=== PATIENT | female | born 1980 | race Caucasian/White ===

== ENCOUNTER 2016-06-24 14:31 | Emergency (ER) | payer OTHER, MEDICAID | END 2016-06-24 18:11 | disposition home or self-care (01) | DX: S92.332A Displaced fracture of third metatarsal bone, left foot, initial encounter for closed fracture (principal); X50.0XXA Overexertion from strenuous movement or load, initial encounter; E11.9 Type 2 diabetes mellitus without complications; Z79.84 Long term (current) use of oral hypoglycemic drugs; M19.90 Unspecified osteoarthritis, unspecified site ==

== ENCOUNTER 2016-07-09 09:03 | Outpatient (CLI) | payer OTHER, MEDICAID | END 2016-07-09 09:04 | disposition home or self-care (01) | DX: M81.0 Age-related osteoporosis without current pathological fracture (principal); E11.9 Type 2 diabetes mellitus without complications ==

== ENCOUNTER 2017-08-16 10:19 | Emergency (ER) | payer OTHER, MEDICAID ==
[2017-08-16 10:44] VITALS: BP 109/84
--- NOTE | 2017-08-16 12:00 | ED Physician Documentation ---
PD HPI UPPER EXT INJURY - Stated complaint Stated Complaint: LEFT HAND INJ/GLF - Chief complaint Chief Complaint: Trauma Ext - History obtained from History obtained from: Patient - History of Present Illness Location: Left Type of injury: Fall Timing - details: Abrupt onset, Still present Worsened by: Moving, Palpating Associated symptoms: Swelling. No: Weakness, Numbness Contributing factors: No: Anticoagulated Similar symptoms before: Has not had sx before Recently seen: Not recently seen Review of Systems Skin: denies: Abrasion (s), Laceration (s) Neurologic: denies: Focal weakness, Numbness PD PAST MEDICAL HISTORY - Past Medical History Past Medical History: Yes Neuro: Seizure disorder Endocrine/Autoimmune: Type 2 diabetes HEENT: Chronic hearing loss Musculoskeletal: Osteopenia Other Past Medical History: Turners syndrome - Past Surgical History Past Surgical History: Yes HEENT: Myringotomy (tubes) - Present Medications Home Medications: Ambulatory Orders Medication Instructions Recorded Confirmed Sitagliptin Phos/Metformin HCl 1 each PO BID 08/14/14 08/16/17 [Janumet 50-1,000 mg Tablet] carBAMazepine ER [TEGretol XR] 200 mg PO DAILY 08/14/14 08/16/17 lamoTRIgine [LaMICtal] 100 mg PO BID 08/14/14 08/16/17 LORazepam [Ativan] 1 mg PO DAILY PRN 06/15/15 08/16/17 Estradiol [Estrace] 1 tab PO DAILY 08/16/17 08/16/17 Estrogen,Con/M-Progest Acet 1 tab PO DAILY 08/16/17 08/16/17 [Prempro 0.625-5 mg Tablet] Glimepiride [Amaryl] 1 tab PO DAILY 08/16/17 08/16/17 - Allergies Allergies/Adverse Reactions: Allergies Allergy/AdvReac Type Severity Reaction Status Date / Time levetiracetam [From Keppra] Allergy Unknown Verified 08/16/17 11:36 phenytoin sodium * AdvReac Nausea Verified 08/16/17 11:36 [From Dilantin] phenytoin sodium extended * AdvReac Nausea Verified 08/16/17 11:36 [From Dilantin] - Social History Does the pt smoke?: No Smoking Status: Never smoker Does the pt drink ETOH?: No Does the pt have substance abuse?: No - Immunizations Immunizations are current?: Yes PD ED PE NORMAL - Vitals Vital signs reviewed: Yes - General General: Alert and oriented X 3, No acute distress, Well developed/nourished - Derm Derm: Normal color, Warm and dry - Extremities Extremities: Normal ROM s pain, No edema, Other (rigt wrist with some tenderness dorsally. Not in snuffbox. Both wrists area placed anteriorly and offset a bit developmentally. Only tender on left. Comparison of wrists visually are symmetric. 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 No noted fractures. ) PD MEDICAL DECISION MAKING - ED course Complexity details: reviewed results, considered differential, d/w patient Departure - Departure Disposition: 01 Home, Self Care Clinical Impression: Fall from slip, trip, or stumble Qualifiers: Encounter type: initial encounter Qualified Code(s): W01.0XXA - Fall on same level from slipping, tripping and stumbling without subsequent striking against object, initial encounter Right wrist sprain Qualifiers: Encounter type: initial encounter Qualified Code(s): S63.501A - Unspecified sprain of right wrist, initial encounter Condition: Stable Record reviewed to determine appropriate education?: Yes Instructions: ED Sprain Wrist Follow-Up: MERON OLSEN MD [Primary Care Provider] - Comments: Tylenol or ibuprofen if needed for pains. Wrist splint as needed for comfort and you can reduce use of the splint as it feels more comfortable. This likely will be sore for several days to week or so. Recheck if not better in that time. Discharge Date/Time: 08/16/17 12:37
[2017-08-16] MEDS ORDERED: IBUPROFEN 400 MG TABLET PO STA (12:15)
--- NOTE | 2017-08-16 12:20 | XRAY Report ---
EXAM: RIGHT FOREARM RADIOGRAPHY EXAM DATE: 08/16/2017 11:03 AM. CLINICAL HISTORY: Pain. COMPARISON: None. TECHNIQUE: 2 views. FINDINGS: Bones/joints: No definite fractures or acute bone lesions. Mild apex-lateral bowing of the radial shalonda physis with some chronic appearing cortical thickening along the medial aspect of the radial diaphysi s, proximal to the midpoint. These changes could be due to old, healed fracture or could be developme ntal in nature. Chronic-type changes of the wrist demonstrated. Refer to the wrist report from same d claritza for further information. The elbow process normally aligned. No definite joint effusion. Joints: Normal. No effusions or subluxations in the visualized wrist or elbow joints. Soft Tissues: Normal. No soft tissue swelling. IMPRESSION: 1. No definite acute abnormality of the right forearm. 2. Radial bowing with area of focal radial diaphyseal cortical thickening may represent sequelae of a n old, healed fracture, versus a developmental finding. 3. Chronic-type changes of the wrist. Refer to the wrist report from today. MINDY Referring Provider Line: [phone] SITE ID: [id number]
--- NOTE | 2017-08-16 12:26 | XRAY Report ---
EXAM: RIGHT WRIST RADIOGRAPHY EXAM DATE: 08/16/2017 11:02 AM. CLINICAL HISTORY: Pain. COMPARISON: None. TECHNIQUE: 3 views. FINDINGS: Bones/joints: No definite acute fractures or acute bone lesions. There is focal deformity along the m edial aspect of the distal radius, with some mild marginal spurring. This could represent sequelae of remote injury/fracture or developmental in nature. There is radiocarpal joint space narrowing with t he lunate mildly interposed between the distal radius and ulna. Substantial joint space narrowing with associated marginal broadening/hypertrophy dorsally at the lev el of carpometacarpal joints, likely the third and/or the second. This also could be a developmental finding and possibly a degree of coalition, versus substantial degenerative disease. Soft Tissues: Possible dorsal soft tissue swelling. IMPRESSION: 1. No definite acute osseous abnormality. 2. Mild deformity of the distal radius with associated radiocarpal joint space narrowing which may be due to remote injury and superimposed degenerative change or may be developmental in nature. 3. Substantial narrowing and associated chronic hypertrophic changes at some carpometacarpal joints m ay also be developmental versus advanced degenerative disease. Correlation with clinical examination in history is recommended. If further evaluation were indicated , MR imaging could be performed. MINDY Referring Provider Line: [phone] SITE ID: [id number]
== END 2017-08-16 12:37 | disposition home or self-care (01) ==
LOC: ED 10:19
DX: S63.501A Unspecified sprain of right wrist, initial encounter (principal); W01.0XXA Fall on same level from slipping, tripping and stumbling without subsequent striking against object, initial encounter; E11.9 Type 2 diabetes mellitus without complications; G40.909 Epilepsy, unspecified, not intractable, without status epilepticus
CPT/HCPCS: 73090; 73110; 99283; A9270

== ENCOUNTER 2017-12-20 16:15 | Emergency (ER) | payer OTHER, MEDICAID ==
[2017-12-20] MEDS ORDERED: IBUPROFEN 400 MG TABLET PO STA (16:32)
[2017-12-20] MEDS ORDERED: ACETAMINOPHEN 325 MG TABLET PO STA (16:32)
[2017-12-20] MEDS ORDERED: BACITRACIN OINT TOP ONE (16:57)
--- NOTE | 2017-12-20 17:14 | ED Physician Documentation ---
History of Present Illness - Stated complaint Stated Complaint: R FOOT INJ - Chief complaint Chief Complaint: Heent - Additonal information Additional information: stumbled on step and twisted R ankle osteporosis 2/2 early menopause 2/2 underlying pmhx so fx occur easily no head neck or other injury otherwise well recently Review of Systems : denies: Now EGA Musculoskeletal: reports: Pain with weight bearing. denies: Neck pain Neurologic: denies: Headache, Head injury PD PAST MEDICAL HISTORY - Past Medical History Past Medical History: Yes Endocrine/Autoimmune: Type 2 diabetes HEENT: Chronic hearing loss Musculoskeletal: Osteopenia - Past Surgical History Past Surgical History: Yes HEENT: Myringotomy (tubes) - Present Medications Home Medications: Ambulatory Orders Medication Instructions Recorded Confirmed Sitagliptin Phos/Metformin HCl 1 each PO BID 08/14/14 08/16/17 [Janumet 50-1,000 mg Tablet] carBAMazepine ER [TEGretol XR] 200 mg PO DAILY 08/14/14 08/16/17 lamoTRIgine [LaMICtal] 100 mg PO BID 08/14/14 08/16/17 LORazepam [Ativan] 1 mg PO DAILY PRN 06/15/15 08/16/17 Estradiol [Estrace] 1 tab PO DAILY 08/16/17 08/16/17 Estrogen,Con/M-Progest Acet 1 tab PO DAILY 08/16/17 08/16/17 [Prempro 0.625-5 mg Tablet] Glimepiride [Amaryl] 1 tab PO DAILY 08/16/17 08/16/17 - Allergies Allergies/Adverse Reactions: Allergies Allergy/AdvReac Type Severity Reaction Status Date / Time levetiracetam [From Keppra] Allergy Unknown Verified 12/20/17 16:24 phenytoin sodium * AdvReac Nausea Verified 12/20/17 16:24 [From Dilantin] phenytoin sodium extended * AdvReac Nausea Verified 12/20/17 16:24 [From Dilantin] - Social History Does the pt smoke?: No Smoking Status: Never smoker Does the pt drink ETOH?: No Does the pt have substance abuse?: No - Immunizations Immunizations are current?: Yes PD ED PE NORMAL - Vitals Vital signs reviewed: Yes - HEENT HEENT: Atraumatic - Cardiac Cardiac: RRR - Respiratory Respiratory: No respiratory distress, Clear bilaterally - Extremities Extremities: Other (RLE abrasion and STST lateral mall, mild lateral foot pain, no knee pain, MSV intact) Results - Vitals Vitals: Vital Signs - 24 hr 12/20/17 12/20/17 16:20 18:40 Temperature 36.5 C Heart Rate 108 H 86 Respiratory 18 16 Rate Blood Pressure 122/86 H 116/75 O2 Saturation 96 Oxygen O2 Source Room air - Rads (name of study) foot Radiology: See rad report (prob nondisplaced 5th MT neck fx, old avulsion base 5th, binio) ankle Radiology: See rad report (non displaced horiz lat mall fx, ? tiny medial mall avulsion (non TTP there), sequalae prior trauma, STS) Procedures - Splint (location) RLE Splint applied by: Tech Type of splint: Fiberglass, Short leg, Posterior Other: Patient tolerated well, No complications, Neurovascular intact, Other ( pt has knee scooter at home) PD MEDICAL DECISION MAKING - ED course ED course: HR better at time of dc - Sepsis Event Vital Signs: Vital Signs - 24 hr 12/20/17 12/20/17 16:20 18:40 Temperature 36.5 C Heart Rate 108 H 86 Respiratory 18 16 Rate Blood Pressure 122/86 H 116/75 O2 Saturation 96 Oxygen O2 Source Room air Departure - Departure Disposition: 01 Home, Self Care Clinical Impression: Ankle fracture, right Qualifiers: Encounter type: initial encounter Fracture type: closed Qualified Code(s): S82.891A - Other fracture of right lower leg, initial encounter for closed fracture Christopher fracture Qualifiers: Encounter type: initial encounter Fracture type: closed Laterality: right Qualified Code(s): S99.191A - Other physeal fracture of right metatarsal, initial encounter for closed fracture Condition: Good Instructions: ED Fx Foot, ED Fx Ankle Lateral Malleolus Follow-Up: MERON OLSEN MD [Primary Care Provider] - [facility] [Provider Group] Comments: You have fractures of the both the ankle and the foot The foot fracture is through the neck of the 5th metatarsal and that particular spot of that particular bone is prone to slow and incomplete healing. So close follow up and monitoring by orthopedics is important No weight bearing - keep the splint on and use your knee scooter We cleaned the abrasion well and bandaged it before apply the splint but be sure the skin is checked again in a few days - if you cant get into orthopedics your PMD should be able to remove the splint, check the wound and then reapply the same splint. Tylenol and motrin for pain. Ice and elevation for swelling Discharge Date/Time: 12/20/17 18:45
--- NOTE | 2017-12-20 17:22 | XRAY Report ---
Procedure Date: 12/20/2017 Accession Number: [id number] / [id number] Procedure: XR - Foot 3 View RT CPT Code: FULL RESULT: EXAM: RIGHT FOOT RADIOGRAPHY EXAM DATE: 12/20/2017 05:03 PM. CLINICAL HISTORY: Fall down stairs. COMPARISON: Right foot radiographs 08/14/2014. TECHNIQUE: 3 views. FINDINGS: Bones: Questionable fracture in the fifth metatarsal neck. Tiny plantar spur. Evidence of prior avulsion fracture at the base of the fifth metatarsal with healing. Joints: Halgus valgus with first metatarsophalangeal joint angle measuring 27 degrees. Soft Tissues: Normal. No soft tissue swelling. IMPRESSION: 1. Questionable nondisplaced fracture in the fifth metatarsal neck. Correlate with point tenderness. 2. Old avulsion fracture the base of the fifth metatarsal 3. Bunion RADIA
--- NOTE | 2017-12-20 17:25 | XRAY Report ---
Procedure Date: 12/20/2017 Accession Number: [id number] / [id number] Procedure: XR - Ankle 3 View RT CPT Code: FULL RESULT: EXAM: RIGHT ANKLE RADIOGRAPHY EXAM DATE: 12/20/2017 05:03 PM. CLINICAL HISTORY: Fall down stairs. COMPARISON: Right ankle radiographs 08/14/2014. TECHNIQUE: 3 views. FINDINGS: Bones: Horizontal nondisplaced lateral malleolar fracture. Questionable tiny avulsion off the medial malleolus. Small ossicles lateral to the cuboid may be sequela of prior trauma. Joints: No dislocation. Symmetric mortise. Soft Tissues: Lateral ankle swelling IMPRESSION: 1. Nondisplaced horizontal lateral malleolar fracture 2. Questionable tiny medial malleolar avulsion fracture 3. Small ossicles lateral to the cuboid may be sequela of prior trauma. 4. Lateral ankle swelling RADIA
[2017-12-20 18:52] VITALS: BP 116/75
== END 2017-12-20 18:45 | disposition home or self-care (01) ==
LOC: ED 16:15
DX: S82.891A Other fracture of right lower leg, initial encounter for closed fracture (principal); S99.191A Other physeal fracture of right metatarsal, initial encounter for closed fracture; X50.9XXA Other and unspecified overexertion or strenuous movements or postures, initial encounter; W18.40XA Slipping, tripping and stumbling without falling, unspecified, initial encounter; Y93.01 Activity, walking, marching and hiking; E11.9 Type 2 diabetes mellitus without complications; M85.80 Other specified disorders of bone density and structure, unspecified site
CPT/HCPCS: 29515; 73610; 73630; 99283; A9270

== ENCOUNTER 2020-10-21 09:41 | Outpatient (CLI) | payer OTHER, MEDICAID ==
--- NOTE | 2020-10-21 15:30 | DEXA Report ---
PROCEDURE: Dexa Spine and/or Hip INDICATIONS: KRAUS'S SYNDROME TECHNIQUE: Dual energy x-ray absorptiometry (DXA) was performed on a Postdeck System. Regions measur ed are the AP Spine, femoral neck, and if needed forearm. COMPARISON: 07/09/2016. FINDINGS: Lumbar Spine: Bone Mineral Density 1.023 g/cm/cm,T score -1.3, there is interval 24.3% increase in total lumbar spine bone mineral density. Left Hip: Bone Mineral Density 0.696 g/cm/cm,T score -2.5, there is interval 4.3% increase in left total hip b one mineral density since previous study. Left Femoral Neck: Bone Mineral Density 0.671 g/cm/cm, T score -2.6. Impression: Osteoporosis. Patients with diagnosis of osteoporosis or osteopenia should have regular bone mineral density assess ment. For those eligible for Medicare, routine testing is allowed once every 2 years. Testing frequ ency can be increased for patients who have rapidly progressing disease or for those who are receivin g medical therapy to restore bone mass. Reviewed by: Salvatore Sousa MD on 10/21/2020 3:28 PM PDT Approved by: Salvatore Sousa MD on 10/21/2020 3:28 PM PDT Station ID: [id number]
== END 2020-10-21 09:42 | disposition home or self-care (01) ==
LOC: DI 09:41
PROVIDERS: ATTEND Internal Medicine
DX: M81.0 Age-related osteoporosis without current pathological fracture (principal)

== ENCOUNTER 2020-10-25 10:15 | Outpatient (CLI) | payer OTHER, MEDICAID ==
--- NOTE | 2020-10-28 12:57 | Mammography Report ---
BILATERAL DIGITAL DIAGNOSTIC MAMMOGRAM 3D/2D: 10/25/2020 CLINICAL: Baseline exam. Pt c/o skin ulcers on right breast. No prior exams were available for comparison. The tissue of both breasts is heterogeneously dense. T his may lower the sensitivity of mammography. There is an irregular equal density focal asymmetry in the left breast at 11 o'clock anterior depth w hich decreases in conspicuity and size on spot compression views. No other significant masses, calcifications, or other findings are seen in either breast. IMPRESSION: INCOMPLETE: NEEDS ADDITIONAL IMAGING EVALUATION The irregular equal density focal asymmetry in the left breast resembles fibroglandular tissue and is indeterminate. An ultrasound is recommended for further evaluation and is scheduled to immediately follow this examination. There is no abnormality seen in the right breast to correspond with the area of clinical concern and multiple skin lesions/ulcerations, however, ultrasound is recommended to confirm no underlying abnorm alities in the breast parenchyma. This exam was interpreted at Station ID: [id number]. NOTE: For mammograms, a report in lay terms will be sent to the patient. Approximately 15% of breast malignancies will not be visualized mammographically. In the management of a palpable breast mass, a negative mammogram must not discourage biopsy of a clinically suspicious lesion. Electronically Signed By: Kraig Sanchez M.D. aty/:10/25/2020 12:50:16 ACR BI-RADS Category 0: Incomplete 3340F PARENCHYMAL PATTERN: (D) - The breast(s) demonstrate(s) heterogeneously dense fibroglandular parenchy ma. BI-RADS CATEGORY: (0) - 0 Ultrasound [id number] Immediate follow-up LATERALITY: (B)
--- NOTE | 2020-10-28 12:57 | Ultrasound Report ---
LIMITED ULTRASOUND OF LEFT BREAST: 10/25/2020 CLINICAL: Patient returns today to evaluate a focal asymmetry in the left breast. Comparison is made to exam dated: 10/25/2020 mammogram - [facility]. Real-time ultrasound of the left breast 12-3 o'clock region was performed. Ley scale images of the real-time examination were reviewed. No significant abnormalities were seen sonographically in the left breast. IMPRESSION: PROBABLY BENIGN There is no abnormality seen in the left breast to correspond with the mammography finding which like ly represents normal fibroglandular tissue. This is suspected to represent asymmetric distribution o f fibroglandular tissue and is probably benign. A follow-up left mammogram in 6 months is recommended to demonstrate stability. Findings and recommendations were conveyed to the patient during today's evaluation. This exam was interpreted at Station ID: [id number]. Electronically Signed By: Kraig Sanchez M.D. aty/:10/25/2020 12:52:08 Ultrasound BI-RADS: 3 Probably benign BI-RADS CATEGORY: (3) - 3 Mammogram [id number] 6 month follow-up LATERALITY: (L)
--- NOTE | 2020-10-28 12:57 | Ultrasound Report ---
LIMITED ULTRASOUND OF RIGHT BREAST: 10/25/2020 CLINICAL: Rt breast ulcerations. Comparison is made to exam dated: 10/25/2020 mammogram - [facility]. Color flow and real-time ultrasound of the right breast 1-2 o'clock and 11 o'clock regions were perfo rmed. Ley scale images of the real-time examination were reviewed. No significant abnormalities were seen sonographically in the right breast. IMPRESSION: NEGATIVE There is no sonographic evidence of malignancy. There is no abnormality seen in the right breast to correspond with the skin lesions/ulcers in the ri ght breast, however, recommend clinical follow up for persistent or worsening symptoms, or developmen t of any clinically suspicious findings. A 1 year screening right mammogram is recommended; however, patient will be returning in approximatel y 6 months for left breast mammogram to confirm stability of probably benign focal asymmetry describe d in separate mammography report. Findings and recommendations were conveyed to the patient during today's evaluation. This exam was interpreted at Station ID: [id number]. Electronically Signed By: Kraig Sanchez M.D. aty/:10/25/2020 13:01:13 Ultrasound BI-RADS: 1 Negative BI-RADS CATEGORY: (1) - 1 RECOMMENDATION: (ANNUAL) - Recommend routine annual screening mammography. [id number] 1 year screening LATERALITY: (B)
== END 2020-10-25 10:16 | disposition home or self-care (01) ==
LOC: DI 10:15
PROVIDERS: ATTEND Internal Medicine
DX: L98.9 Disorder of the skin and subcutaneous tissue, unspecified (principal)

== ENCOUNTER 2021-05-29 09:42 | Outpatient (CLI) | payer OTHER, MEDICAID ==
--- NOTE | 2021-05-30 11:31 | Mammography Report ---
UNILATERAL LEFT DIGITAL DIAGNOSTIC MAMMOGRAM 3D/2D: 05/29/2021 CLINICAL: Patient returns for a 6 month follow up of the left breast. Comparison is made to exams dated: 10/25/2020 ultrasound, 10/25/2020 ultrasound, and 10/25/2020 mammogram - [facility]. There are scattered fibroglandular elements in left breast. There is an asymmetry in the left breast anterior depth medial region seen on the craniocaudal view o nly. This is less prominent. No other significant masses or calcifications are seen in the breast. IMPRESSION: BENIGN The asymmetry in the left breast resembles fibroglandular tissue and is benign. There is no mammographic evidence of malignancy. Return to annual mammogram screening schedule is rec ommended. Findings and recommendations were conveyed to the patient at time of exam. This exam was interpreted at Station ID: [id number]. NOTE: For mammograms, a report in lay terms will be sent to the patient. Approximately 15% of breast malignancies will not be visualized mammographically. In the management of a palpable breast mass, a negative mammogram must not discourage biopsy of a clinically suspicious lesion. Electronically Signed By: Radhika greco/:05/29/2021 10:39:37 ACR BI-RADS Category 2: Benign Finding(s) 3342F PARENCHYMAL PATTERN: (A) - The breast(s) demonstrate(s) scattered fibroglandular densities. BI-RADS CATEGORY: (2) - 2 RECOMMENDATION: (ANNUAL) - Recommend routine annual screening mammography. [id number] return to screening LATERALITY: (B)
== END 2021-05-29 09:43 | disposition home or self-care (01) ==
LOC: DI 09:42
PROVIDERS: ATTEND Internal Medicine
DX: R92.8 Other abnormal and inconclusive findings on diagnostic imaging of breast (principal)